=== PATIENT | female | born 1995 | race African-American/Black ===

== ENCOUNTER 2019-08-02 18:23 | Emergency (ER) | payer OTHER ==
[2019-08-02] MEDS ORDERED: Acetaminophen 500 MG TAB ONE (18:52)
== END 2019-08-02 19:40 | disposition home or self-care (01) ==
LOC: MADERS 18:23
DX: B34.9 Viral infection, unspecified (principal)
CPT/HCPCS: 87081; 87430; 99283

== ENCOUNTER 2025-05-27 12:44 | Emergency (ER) | payer BC, SELFPAY ==
[2025-05-27] MEDS ORDERED: Metoclopramide HCl 10 MG (2 mL) VIAL ONE (13:09)
[2025-05-27] MEDS ORDERED: Ketorolac Tromethamine 30 MG (1 mL) VIAL ONE (13:09)
[2025-05-27 13:24] LABS: BHCG - Serum Negative (NEGATIVE); Pregs Control Background? CLEAR/WHITE (CLR/WHITE); Pregs Control Bar Appear? YES (CONTROL BAR)
[2025-05-27 13:31] LABS: #Basophils 0.1 thou/uL (0.0-0.2); #Eosinophils 0.2 thou/uL (0.0-0.7); #Lymphocytes 1.9 thou/uL (1.20-3.40); #Monocytes 0.4 thou/uL (0.11-0.59); #Neutrophils 4.6 thou/uL (1.40-6.50); %Basophils 1.6 % (0.0-1.0); %Eosinophils 2.2 % (0.0-10.0); %Lymphocytes 27.1 % (21.0-51.0); %Monocytes 5.2 % (0.0-10.0); %Neutrophils 63.9 % (42.0-75.0); Hematocrit 38.7 % (36.0-47.0); Hemoglobin 12.5 g/dL (12.0-16.0); Mean Corpuscular Hemoglobin 27.8 pg (27.0-31.0); Mean Corpuscular Volume 86.3 fl (78.0-98.0); Platelet Count 369 10x3/uL (130-400); Red Blood Cell (RBC) Count 4.49 mill/uL (4.20-5.40); White Blood Cell (WBC) Count 7.1 10x3/uL (4.8-10.8)
[2025-05-27 13:39] LABS: ALT (SGPT) Less than 7 U/L (Less than 34); AST (SGOT) 17 U/L (11-34); Albumin 4.5 g/dL (3.1-4.5); Alkaline Phosphatase 43 U/L (40-110); Anion Gap 15 mmol/L (10-20); BUN (Urea Nitrogen) 12 mg/dL (7.0-18.7); Bilirubin, Total 0.8 mg/dL (0.3-1.2); Calc. Creatinine Clearance 0 mL/min (70-130); Calcium 9.0 mg/dL (7.8-10.44); Carbon Dioxide 21 mmol/L (22-29); Chloride 108 mmol/L (98-107); Globulin 2.2 g/dL (2.4-3.5); Glucose 105 mg/dL (70-105); Potassium 3.5 mmol/L (3.5-5.1); Sodium 140 mmol/L (136-145)
== END 2025-05-27 14:50 | disposition home or self-care (01) ==
LOC: MADERS 12:44
DX: R51.9 Headache, unspecified (principal)
CPT/HCPCS: 70450; 80053; 84703; 85025; 96361; 96374; 96375; J1885; J2765; J7030

== ENCOUNTER 2025-09-26 08:26 | Emergency (ER) | payer SELFPAY | END 2025-09-26 08:51 | disposition home or self-care (01) | LOC: MADERS 08:26 | DX: T78.3XXA Angioneurotic edema, initial encounter (principal) | CPT/HCPCS: 99283 ==